=== PATIENT | male | born 1980 | race Two or more races ===

== ENCOUNTER 2019-11-02 11:00 | Outpatient (CLI) | payer MEDICAID ==
[2019-11-02] MEDS ORDERED: OMNIPAQUE 350 MG/ML, 100ML BOTTLE ONE (13:00)
== END 2019-11-02 23:59 | disposition home or self-care (01) ==
LOC: CFH 11:00
PROVIDERS: ATTEND Specialist
DX: C18.7 Malignant neoplasm of sigmoid colon (principal); R91.8 Other nonspecific abnormal finding of lung field; R16.1 Splenomegaly, not elsewhere classified; K43.5 Parastomal hernia without obstruction or gangrene; R19.00 Intra-abdominal and pelvic swelling, mass and lump, unspecified site
CPT/HCPCS: 71260; 74177; Q9967